=== PATIENT | male | born 1985 | race Caucasian/White ===

== ENCOUNTER 2022-08-30 14:14 | Emergency (ER) | payer OTHER, SELFPAY ==
[2022-08-30 14:27] VITALS: BP 150/102; PULSE 104; RESP 16; TEMP 36.9; O2SAT 99
[2022-08-30 17:18] VITALS: BP 171/99; PULSE 109; RESP 20; O2SAT 97
--- NOTE | 2022-08-30 17:18 | ED.SKABFB ---
HPI - Skin/Abscess/Foreign Bdy General Chief complaint: Skin/Abscess/Foreign Body Stated complaint: cyst Time Seen by Provider: 08/30/22 17:10 History of Present Illness HPI narrative: Patient is a 37-year-old male here for evaluation of pain around his rectum for the past day. Patient initially attributed this to chafing because he was working outside all day with cars but he notes the discomfort has increased and is now present while he is at rest. He has a history of perianal abscess that were drained in the ED and states it feels similar. Denies any fevers, chills, nausea or vomiting. No diarrhea, constipation, abdominal pain or blood in his stool. Related Data Allergies Allergy/AdvReac Type Severity Reaction Status Date / Time ibuprofen [From Motrin] Allergy Hives Verified 08/30/22 17:19 Review of Systems Review of Systems: Gen.: Denies fevers or chills Eyes: Denies eye pain or visual change ENT: Denies congestion Respiratory: Denies shortness of breath or cough CV: Denies chest pain or palpitations GI: Denies abdominal pain nausea, emesis or diarrhea reports perirectal pain. Denies burning, urgency, frequency or hematuria Musculoskeletal: Denies back pain or muscle pain Neuro: Denies numbness, tingling, weakness or focal weakness Skin: Reports perirectal pain Except as documented, all other systems reviewed and negative Exam Narrative: Gen: Alert, oriented, no acute distress Eyes: EOMI, no icterus Pulm: Respirations even and unlabored, symmetric thorax expansion, no audible stridor or visible cyanosis CV: Regular rate per telemetry GI: No distension, no voluntary/involuntary guarding Neuro: AOx4, moves all extremities without apparent difficulty or weakness, follows commands : Patient has a 2 x 3 cm area of erythema at the 5 o'clock position at the anus with a central area of fluctuance, tender to palpation, overlying warmth Skin: No jaundice, no visible bruising, rashes, lesions or wounds on exposed skin Psych: Normal mood/affect, insight/judgement good, adequate fund of knowledge, recent/remote memory intact Course Vital Signs Vital signs: Vital Signs Temperature 98.5 F 08/30/22 14:27 Pulse Rate 104 H 08/30/22 14:27 Respiratory Rate 16 08/30/22 14:27 Blood Pressure 150/102 H 08/30/22 14:27 Pulse Oximetry 99 08/30/22 14:27 Temperature 98.5 F 08/30/22 14:27 Pulse Rate 109 H 08/30/22 17:18 Respiratory Rate 20 08/30/22 17:18 Blood Pressure 171/99 H 08/30/22 17:18 Pulse Oximetry 97 08/30/22 17:18 Procedures Abscess I/D other: Date of Incision: 08/30/22 Time of Incision: 18:03 Side (if applicable): right Local Anesthetic: lidocaine 1% Amount of anesthesia used (mL): 3 Technique: incised with #11 blade Amount of fluid expressed (mL): 5 Irrigation: No Packing used?: plain I&D Results: Pus and Blood Abcess I&D Additional Comments: right perianal abscess MDM - Skin/Abscess/Foreign Bdy MDM Narrative Medical decision making narrative: 37-year-old male here for evaluation of 2 x 3 cm perianal abscess that started 2 develop yesterday. He is nontoxic in appearance although slightly uncomfortable, afebrile. Slightly hypertensive and tachycardic, likely due to pain. No evidence of perirectal abscess; no pain with digital rectal exam. Abscess was incised in the ED with return of pus and blood. Given surrounding cellulitis we will send home with antibiotics. Return precautions were discussed and he voiced understanding. Discharge Plan Discharge Clinical Impression: Perianal abscess Patient Disposition: Home, Self-Care Condition: Stable Instructions: Antibiotic Form, Abscess Incision and Drainage (DC) Additional Instructions: You had an abscess drained today. I placed packing that will need to come out in about 5 to 7 days. When is time to come out, please sit in a bath to help soften the packing.
[2022-08-30] MEDS: HYDROcodone/acetaminophen (*CRX) 5-325 MG TABLET 1 TAB PO (17:28)
[2022-08-30] MEDS: LIDOCAINE/PRILOCAINE CREAM 2.5-2.5% TUBE 1 EACH TOPICAL (17:52)
== END 2022-08-30 18:37 | disposition home or self-care (01) ==
PROVIDERS: Emergency Provider Physician Assistant
DX: K61.0 Anal abscess (principal)
CPT/HCPCS: 10061; 46050; 99283; A9270